=== PATIENT | male | born 2000 | race African-American/Black ===

== ENCOUNTER 2020-10-21 02:17 | Emergency (ER) | payer SELFPAY ==
[2020-10-21] MEDS ORDERED: Ibuprofen 800 MG TAB ONE (03:29)
[2020-10-21] MEDS ORDERED: Ondansetron ODT 4 MG TAB ONE (03:29)
== END 2020-10-21 03:34 | disposition home or self-care (01) ==
LOC: ERS 02:17
DX: M79.10 Myalgia, unspecified site (principal); R07.2 Precordial pain; F17.290 Nicotine dependence, other tobacco product, uncomplicated
CPT/HCPCS: 99283; Q0162

== ENCOUNTER 2020-12-01 18:10 | Emergency (ER) | payer SELFPAY | END 2020-12-01 21:25 | disposition home or self-care (01) | LOC: ERS 18:10 | DX: M54.5 Low back pain (principal); E66.9 Obesity, unspecified; F17.290 Nicotine dependence, other tobacco product, uncomplicated; X50.0XXA Overexertion from strenuous movement or load, initial encounter; Z68.45 Body mass index [BMI] 70 or greater, adult | CPT/HCPCS: 99283 ==